=== PATIENT | male | born 1935 | race Caucasian/White ===

== ENCOUNTER → 2021-05-12 | Outpatient (CLI) | payer MEDICARE, BC | LOC: COL.RAD 10:37 | DX: K22.8 Other specified diseases of esophagus (principal) ==

== ENCOUNTER 2021-06-16 10:41 | Outpatient (RCR) | payer MEDICARE, BC | END 2021-09-14 | disposition home or self-care (01) | LOC: WSST | DX: R13.10 Dysphagia, unspecified (principal) ==

== ENCOUNTER → 2021-06-25 | Outpatient (CLI) | payer MEDICARE, BC | LOC: COL.RAD 14:50 | DX: R13.10 Dysphagia, unspecified (principal) ==

== ENCOUNTER 2022-02-01 12:04 | Emergency (ER) | payer MEDICARE, BC ==
[~2022-02-01] VITALS: Ht 170.2 cm; Wt 68.2 kg
[2022-02-01 12:11] VITALS: BP 137/74; TEMP 97.4
[2022-02-01] MEDS ORDERED: LIPITOR 40MG TA40 MG PO (12:52)
[2022-02-01] MEDS ORDERED: CALCIUM 600MG+D1 TAB PO (12:52)
[2022-02-01] MEDS ORDERED: GOOD SENSE SLEE25 M1 PO (12:53)
[2022-02-01 13:35] VITALS: PULSE 68
== END 2022-02-01 13:36 | disposition home or self-care (01) ==
LOC: COL.ER 12:04
DX: S00.03XA Contusion of scalp, initial encounter (principal); S10.93XA Contusion of unspecified part of neck, initial encounter; W01.198A Fall on same level from slipping, tripping and stumbling with subsequent striking against other object, initial encounter

== ENCOUNTER 2022-03-23 13:50 | Emergency (ER) | payer MEDICARE, BC ==
[~2022-03-23] VITALS: Ht 167.6 cm; Wt 68.2 kg
[~2022-03-23 13:50] MED LIST: CALCIUM 600MG+D1 TAB PO; GOOD SENSE SLEE25 M1 PO; LIPITOR 40MG TA40 MG PO
[2022-03-23 14:13] VITALS: TEMP 99
[2022-03-23 14:56] LABS: COLLECTION METHOD CATHETER
[2022-03-23 15:02] LABS: BASO % 0.4 % (0.0-2.0); EOS % 0.2 % (0.0-4.0); GRAN # 3.4 K/mm3 (1.4-6.5); GRAN % 63.4 % (42.2-75.2); HEMATOCRIT 37.8 % (42.0-52.0); HEMOGLOBIN 12.7 g/dl (13.5-18.0); LYMPH # 1.2 K/mm3 (1.2-3.4); LYMPH % 22.9 % (20.0-51.0); MEAN CELL VOLUME 93 fl (80.0-100.0); MEAN CORPUSCULAR HEMOGLOBIN 31 pg (27-31); MEAN CORPUSCULAR HGB CONC 34 g/dl (33.0-37.0); MEAN PLATELET VOLUME 10.9 fl (7.4-10.4); MONO # 0.7 K/mm3 (0.1-0.6); MONO % 12.9 % (1.7-9.3); PLATELET COUNT 119 K/mm3 (130-400); RED BLOOD COUNT 4.07 M/mm3 (4.20-5.60); REDCELL DISTRIBUTION WIDTH-CV 14.6 % (11.5-14.5)
[2022-03-23 15:03] LABS: PH 5 (5-8); SQUAMOUS EPITHELIAL None Seen /hpf (0-10); URINE APPEARANCE Clear (CLEAR/HAZY); URINE BACTERIA Rare /hpf (NONE SEEN); URINE BILIRUBIN Negative (NEGATIVE); URINE BLOOD Negative (NEGATIVE); URINE COLOR Yellow (YELLOW); URINE GLUCOSE Negative (NEGATIVE); URINE KETONE Negative (NEGATIVE); URINE LEUKOCYTE ESTERASE Negative (NEGATIVE); URINE NITRATE Negative (NEGATIVE); URINE PROTEIN(semi-quant) Negative (NEGATIVE); URINE RBC 0-2 /hpf (0-2); URINE UROBILINOGEN Negative (NEGATIVE)
[2022-03-23 15:19] LABS: ALBUMIN 2.6 gm/dL (3.4-4.8); BILIRUBIN,TOTAL 0.9 mg/dL (0.2-1.2); C-REACTIVE PROTEIN 1.9 mg/dL (0.00-0.50); CREATININE, serum 0.88 mg/dL (0.72-1.25); POTASSIUM 4.4 mmol/L (3.5-4.5); TOTAL PROTEIN 5.1 gm/dL (6.2-8.1)
[2022-03-23 16:00] VITALS: BP 124/67; PULSE 66
--- NOTE | 2022-03-23 16:10 | NUR ---
[employer] was contacted by [facility] who advised patient was sent over by Dr. Hernandez's office "for placement", however per ED physician, patient does not meet criteria to be admitted. GILMER met with patient and , Kenna and explained that patient does not meet criteria to be admitted and cannot be admitted with the sole purpose of SNF placement. Kenna verbalized disappointment, but understanding. GILMER offered Home Health services, however Kenna advised they had tried that before and it had not been very beneficial. Patient had a fall in November and has had a decline ever since. Patient is being seen weekly at [facility] for wound care as he hit his head when he fell in November. Kenna advised patient is doing things like getting undressed, forgetting how to get dressed, and recently could not figure out how to get out of the bathroom. GILMER advised snf placement would be private pay and Kenna advised they may be able to pay for a short time before patient would qualify for Medicaid. Kenna is agreeable to have referrals sent to [facility], [facility], and [facility]. Kenna is agreeable to take patient home tonight and have follow up from the facilities tomorrow. GILMER contacted the facilities and faxed referral. GILMER provided update to ED RNDar[facility].
== END 2022-03-23 16:10 | disposition home or self-care (01) ==
LOC: COL.ER 13:50
PROVIDERS: Family Medicine
DX: S01.90XA Unspecified open wound of unspecified part of head, initial encounter (principal); F03.90 Unspecified dementia, unspecified severity, without behavioral disturbance, psychotic disturbance, mood disturbance, and anxiety; R64 Cachexia; X58.XXXA Exposure to other specified factors, initial encounter
CPT/HCPCS: J7120